=== PATIENT | female | born 1960 | race African-American/Black ===

== ENCOUNTER 2019-12-12 06:20 | Observation (INO) | payer OTHER ==
[2019-12-08 13:05] LABS: BASOPHILS % 0.2 % (0.0-1.0); EOSINOPHILS % 0.2 % (0.0-6.0); HEMATOCRIT 31.6 % (34.2-44.1); HEMOGLOBIN 10.6 g/dL (12.0-16.0); LYMPHOCYTES # (AUTO) 1.6 (1.0-3.2); LYMPHOCYTES % 38.7 % (18.0-39.1); MEAN CORPUSCULAR HEMOGLOBIN 30.4 pg (28-32); MEAN CORPUSCULAR HGB CONC 33.5 g/dL (31-35); MEAN CORPUSCULAR VOLUME 90.5 fL (81-99); MONOCYTES # (AUTO) 0.2 (0.2-0.8); MONOCYTES % 5.4 % (4.4-11.3); NEUTROPHILS # (AUTO) 2.3 (2.1-6.9); NEUTROPHILS % 55.3 % (38.7-80.0); PLATELET COUNT 64 x10e3/uL (140-360); RED BLOOD COUNT 3.49 x10e6/uL (3.6-5.1); RED CELL DISTRIBUTION WIDTH 14.1 % (11.7-14.4)
[~2019-12-12] VITALS: Ht 165.1 cm; Wt 49.0 kg
[~2019-12-12 06:20] MED LIST: LOSARTAN POTASS25 MG PO; ULTRAM50 MG PO
[2019-12-12] MEDS ORDERED: VANCOMYCIN HCL 1,000 MG ONE (06:42)
[2019-12-12] MEDS ORDERED: SODIUM CHLORIDE 0.9% 500ML 500 ML ONE (06:42)
[2019-12-12] MEDS ORDERED: TRANEXAMIC ACID 1,000 MG/10 ML ML ONE (06:43)
[2019-12-12] MEDS ORDERED: BUPIVACAINE 7.5MG/ML /DEXTROSE 82.5MG/ML 2 ML AMP INJ ONE (07:11)
[2019-12-12 07:22] LABS: BASOPHILS % 0.4 % (0.0-1.0); EOSINOPHILS # (AUTO) 0.1 (0.0-0.4); EOSINOPHILS % 1.8 % (0.0-6.0); HEMATOCRIT 26.8 % (34.2-44.1); HEMOGLOBIN 8.6 g/dL (12.0-16.0); LYMPHOCYTES # (AUTO) 1.6 (1.0-3.2); LYMPHOCYTES % 36.3 % (18.0-39.1); MEAN CORPUSCULAR HEMOGLOBIN 30.3 pg (28-32); MEAN CORPUSCULAR HGB CONC 32.1 g/dL (31-35); MEAN CORPUSCULAR VOLUME 94.4 fL (81-99); MONOCYTES # (AUTO) 0.3 (0.2-0.8); MONOCYTES % 7.6 % (4.4-11.3); NEUTROPHILS # (AUTO) 2.4 (2.1-6.9); NEUTROPHILS % 53.7 % (38.7-80.0); PLATELET COUNT 54 x10e3/uL (140-360); RED BLOOD COUNT 2.84 x10e6/uL (3.6-5.1); RED CELL DISTRIBUTION WIDTH 14.1 % (11.7-14.4)
[2019-12-12] MEDS ORDERED: CELECOXIB 200 MG CAP ONE (07:22)
[2019-12-12] MEDS ORDERED: GABAPENTIN 300 MG CAP ONE (07:23)
[2019-12-12] MEDS ORDERED: CEFAZOLIN SOD 1 GM/NS 50ML 100 ML IV ONE (07:23)
[2019-12-12] MEDS ORDERED: DEXAMETHASONE SOD PHOS 10 MG/1 ML VIAL ONE (07:23)
[2019-12-12] MEDS ORDERED: ROPIVACAINE 246.25 MG, EPINEPHRINE HCL 1:1000 1ML 0.5 MG, CLONIDINE HCL 0.08 MG, KETORO... INJ ONE ×5 (08:00)
[2019-12-12] MEDS ORDERED: ACETAMINOPHEN 650 MG SUPP PR PRN (09:15)
[2019-12-12] MEDS ORDERED: HYDROCODONE/APAP 5MG-325MG TAB PO PRN (09:15)
[2019-12-12] MEDS ORDERED: ONDANSETRON HCL INJ 2MG/ML 2ML 2 MG/ML VIAL IV PRN (09:15)
[2019-12-12] MEDS ORDERED: DIPHENHYDRAMINE HCL INJ 50 MG/ML VIAL IV PRN (09:15)
[2019-12-12] MEDS ORDERED: DOCUSATE SODIUM 100 MG CAP PO PRN (09:15)
[2019-12-12] MEDS ORDERED: HYDROMORPHONE 1MG/1ML INJ ONE (09:31)
[2019-12-12 10:37] VITALS: BP 161/91
[2019-12-12 10:47] VITALS: BP 161/91
[2019-12-12] MEDS: SODIUM CHLORIDE 0.9% 1000ML 1,000 ML IV SCH ×2 (11:51→20:26)
[2019-12-12 11:52] VITALS: BP 170/86
[2019-12-12] MEDS: HYDROCODONE/APAP 7.5MG-325MG 1 EA TAB PO PRN ×2 (12:23→20:29)
[2019-12-12] MEDS ORDERED: FENTANYL CITRATE/PF 100MCG/2 ML INJ ONE (12:45)
[2019-12-12] MEDS ORDERED: MIDAZOLAM HCL 2 MG/2 ML VIAL ONE (12:45)
[2019-12-12] MEDS: CEFAZOLIN SOD 1 GM/NS 50ML 50 ML IV SCH ×2 (14:06→22:36)
[2019-12-12] MEDS ORDERED: TRAMADOL HCL 50 MG TAB PO PRN (14:15)
[2019-12-12 15:22] VITALS: BP 148/74
[2019-12-12] MEDS: CELECOXIB 200 MG CAP PO SCH (17:11)
[2019-12-12] MEDS: KETOROLAC TROMETHAMINE 30 MG/ML VIAL IV PRN (17:25)
[2019-12-12] MEDS ORDERED: SEVOFLURANE INHAL SOLN 250 ML PEN BTL ONE (19:27)
[2019-12-12] MEDS ORDERED: PROPOFOL IV EMULSION 10 MG/ML 20 ML VIAL ONE (19:27)
[2019-12-12] MEDS ORDERED: LIDOCAINE HCL 2% LOCAL INJ 5 ML SDV VIAL INJ ONE (19:27)
[2019-12-12] MEDS ORDERED: ONDANSETRON HCL INJ 2MG/ML 2ML 2 MG/ML VIAL ONE (19:27)
[2019-12-12] MEDS ORDERED: LIDOCAINE HCL 2% JELLY 5 ML TUBE ONE (19:27)
[2019-12-12 20:00] VITALS: BP 130/87
[2019-12-12] MEDS: NICOTINE 21 MG/EA PATCH TOP SCH (20:31)
[2019-12-12] MEDS: ASPIRIN 325 MG TAB PO SCH (21:00)
[2019-12-12] MEDS ORDERED: ZOLPIDEM TARTRATE 5 MG TAB PO PRN (21:00)
[2019-12-13] VITALS: BP 139/77
[2019-12-13] MEDS: KETOROLAC TROMETHAMINE 30 MG/ML VIAL IV PRN ×4 (00:26→21:59)
[2019-12-13] MEDS: SODIUM CHLORIDE 0.9% 1000ML 1,000 ML IV SCH (05:26)
[2019-12-13] MEDS: CEFAZOLIN SOD 1 GM/NS 50ML 50 ML IV SCH (05:26)
[2019-12-13 05:53] LABS: BASOPHILS % 0.2 % (0.0-1.0); EOSINOPHILS % 0.2 % (0.0-6.0); HEMOGLOBIN 7.2 g/dL (12.0-16.0); LYMPHOCYTES # (AUTO) 1.6 (1.0-3.2); LYMPHOCYTES % 27.8 % (18.0-39.1); MEAN CORPUSCULAR HEMOGLOBIN 30.8 pg (28-32); MEAN CORPUSCULAR HGB CONC 32.9 g/dL (31-35); MEAN CORPUSCULAR VOLUME 93.6 fL (81-99); MONOCYTES # (AUTO) 0.5 (0.2-0.8); MONOCYTES % 7.8 % (4.4-11.3); NEUTROPHILS # (AUTO) 3.7 (2.1-6.9); NEUTROPHILS % 63.5 % (38.7-80.0); PLATELET COUNT 56 x10e3/uL (140-360); RED BLOOD COUNT 2.34 x10e6/uL (3.6-5.1); RED CELL DISTRIBUTION WIDTH 14.3 % (11.7-14.4)
[2019-12-13] MEDS: HYDROCODONE/APAP 7.5MG-325MG 1 EA TAB PO PRN ×5 (05:57→23:33)
[2019-12-13 06:09] LABS: INR 1.14; PROTHROMBIN TIME 15.2 seconds (11.9-14.5)
[2019-12-13 06:14] LABS: HEMATOCRIT 21.9 % (34.2-44.1)
[2019-12-13 06:19] LABS: ALANINE AMINOTRANSFERASE 56 IU/L (0-55); ALBUMIN/GLOBULIN RATIO 0.8 (0.8-2.0); ALKALINE PHOSPHATASE 111 IU/L (40-150); ANION GAP 12.1 mmol/L (8-16); BLOOD UREA NITROGEN 13 mg/dL (7-26); BUN/CREATININE RATIO 17 (6-25); CALCIUM 7.9 mg/dL (8.4-10.2); CARBON DIOXIDE 23 mmol/L (22-29); CHLORIDE 106 mmol/L (98-107); CREATININE, SERUM 0.75 mg/dL (0.57-1.11); EST GLOMERULAR FILTRATION RATE > 60 ML/MIN (60-); GLUCOSE 164 mg/dL (74-118); POTASSIUM 4.1 mmol/L (3.5-5.1); SODIUM 137 mmol/L (136-145)
[2019-12-13 07:55] VITALS: BP 173/80
[2019-12-13] MEDS: CELECOXIB 200 MG CAP PO SCH ×2 (07:56→16:34)
[2019-12-13] MEDS: LOSARTAN POTASSIUM 25 MG TAB PO SCH (07:56)
[2019-12-13] MEDS: ASPIRIN 325 MG TAB PO SCH ×2 (07:56→16:34)
[2019-12-13 08:05] VITALS: BP 173/80
[2019-12-13] MEDS ORDERED: NICOTINE 21 MG/EA PATCH TOP SCH (09:00)
[2019-12-13] MEDS ORDERED: ACETAMINOPHEN 1000 MG/100 ML IV PRN (09:15)
[2019-12-13] MEDS ORDERED: SODIUM CHLORIDE 0.9% 250ML 250 ML IV ONE (10:00)
[2019-12-13 11:12] LABS: FERRITIN 418.5 ng/mL (4.63-204.00)
[2019-12-13 12:20] VITALS: BP 137/76
[2019-12-13 15:07] VITALS: BP 133/71
[2019-12-13 20:00] VITALS: BP 133/71
[2019-12-13] MEDS: NICOTINE 21 MG/EA PATCH TOP SCH (20:58)
[2019-12-14] VITALS: BP 175/93
[2019-12-14 04:00] VITALS: BP 155/88
[2019-12-14] MEDS: KETOROLAC TROMETHAMINE 30 MG/ML VIAL IV PRN (04:17)
[2019-12-14 05:38] LABS: BASOPHILS % 0.3 % (0.0-1.0); EOSINOPHILS # (AUTO) 0.1 (0.0-0.4); EOSINOPHILS % 1.3 % (0.0-6.0); HEMATOCRIT 26.5 % (34.2-44.1); HEMOGLOBIN 8.8 g/dL (12.0-16.0); LYMPHOCYTES # (AUTO) 2.2 (1.0-3.2); LYMPHOCYTES % 36.9 % (18.0-39.1); MEAN CORPUSCULAR HEMOGLOBIN 30.6 pg (28-32); MEAN CORPUSCULAR HGB CONC 33.2 g/dL (31-35); MONOCYTES # (AUTO) 0.6 (0.2-0.8); MONOCYTES % 9.6 % (4.4-11.3); NEUTROPHILS % 51.4 % (38.7-80.0); PLATELET COUNT 66 x10e3/uL (140-360); RED BLOOD COUNT 2.88 x10e6/uL (3.6-5.1); RED CELL DISTRIBUTION WIDTH 15.5 % (11.7-14.4)
[2019-12-14 06:07] LABS: ALANINE AMINOTRANSFERASE 43 IU/L (0-55); ALBUMIN 2.9 g/dL (3.5-5.0); ALBUMIN/GLOBULIN RATIO 0.7 (0.8-2.0); ALKALINE PHOSPHATASE 88 IU/L (40-150); ANION GAP 11.7 mmol/L (8-16); BLOOD UREA NITROGEN 15 mg/dL (7-26); BUN/CREATININE RATIO 22 (6-25); CARBON DIOXIDE 23 mmol/L (22-29); CHLORIDE 106 mmol/L (98-107); CREATININE, SERUM 0.68 mg/dL (0.57-1.11); EST GLOMERULAR FILTRATION RATE > 60 ML/MIN (60-); GLUCOSE 136 mg/dL (74-118); POTASSIUM 3.7 mmol/L (3.5-5.1); SODIUM 137 mmol/L (136-145)
[2019-12-14 08:06] VITALS: BP 151/86
[2019-12-14 08:15] VITALS: BP 151/86
[2019-12-14] MEDS: LOSARTAN POTASSIUM 25 MG TAB PO SCH (09:33)
[2019-12-14] MEDS: ASPIRIN 325 MG TAB PO SCH (09:33)
[2019-12-14] MEDS: CELECOXIB 200 MG CAP PO SCH (09:33)
[2019-12-14] MEDS: HYDROCODONE/APAP 7.5MG-325MG 1 EA TAB PO PRN (09:34)
[2019-12-14] MEDS ORDERED: XARELTO10 MG PO (10:36)
[2019-12-14] MEDS ORDERED: RIVAROXABAN 10 MG TABLET PO SCH (11:00)
[2019-12-14] MEDS ORDERED: ONDANSETRON HCL 4 MG ORAL DISINTEGRATING TAB PO PRN (11:30)
== END 2019-12-14 11:47 | disposition home or self-care (01) ==
LOC: OR 06:20 → PACU V 09:03 → MED/SURG 10:19 → INTOOBSV 12-13 09:04 → OBSVTOIN 12-13 09:04
PROVIDERS: ADMIT Specialist; ATTEND Specialist
DX: M87.052 Idiopathic aseptic necrosis of left femur (principal); Z11.59 Encounter for screening for other viral diseases; D61.818 Other pancytopenia; F17.210 Nicotine dependence, cigarettes, uncomplicated; I11.9 Hypertensive heart disease without heart failure; F10.20 Alcohol dependence, uncomplicated; M81.8 Other osteoporosis without current pathological fracture
CPT/HCPCS: 36415; 71046; 72170; 80053; 82607; 82728; 82746; 83540; 84466; 85025; 85610; 86850; 86870; 86880; 86900; 86905; 86920; 86922; 93005; 97139; 99001; C1713; C1776; G0378; J0171; J0690; J1100; J1170; J1885; J2001; J2250; J2405; J2795; J3010; J3370; J7030; J7040; J7050; P9016; U0002

== ENCOUNTER 2020-04-23 12:51 | Inpatient (IN) | payer OTHER ==
[~2020-04-23] VITALS: Ht 165.1 cm; Wt 49.0 kg
[~2020-04-23 12:51] MED LIST changes: +XARELTO10 MG PO
[2020-04-23 13:43] LABS: BASOPHILS % 0.5 % (0.0-1.0); EOSINOPHILS # (AUTO) 0.1 (0.0-0.4); EOSINOPHILS % 2.3 % (0.0-6.0); HEMOGLOBIN 9.4 g/dL (12.0-16.0); LYMPHOCYTES # (AUTO) 1.5 (1.0-3.2); MEAN CORPUSCULAR HEMOGLOBIN 33.2 pg (28-32); MEAN CORPUSCULAR HGB CONC 33.6 g/dL (31-35); MEAN CORPUSCULAR VOLUME 98.9 fL (81-99); MONOCYTES # (AUTO) 0.4 (0.2-0.8); MONOCYTES % 9.3 % (4.4-11.3); NEUTROPHILS # (AUTO) 2.4 (2.1-6.9); NEUTROPHILS % 54.4 % (38.7-80.0); PLATELET COUNT 74 x10e3/uL (140-360); RED BLOOD COUNT 2.83 x10e6/uL (3.6-5.1); RED CELL DISTRIBUTION WIDTH 14.4 % (11.7-14.4)
[2020-04-23 14:05] LABS: ALANINE AMINOTRANSFERASE 38 IU/L (0-55); ALBUMIN 3.5 g/dL (3.5-5.0); ALBUMIN/GLOBULIN RATIO 0.6 (0.8-2.0); ALKALINE PHOSPHATASE 86 IU/L (40-150); ANION GAP 14.1 mmol/L (8-16); BLOOD UREA NITROGEN 16 mg/dL (7-26); BUN/CREATININE RATIO 19 (6-25); CARBON DIOXIDE 24 mmol/L (22-29); CHLORIDE 95 mmol/L (98-107); CREATINE KINASE 27 IU/L (29-168); CREATININE, SERUM 0.83 mg/dL (0.57-1.11); EST GLOMERULAR FILTRATION RATE > 60 ML/MIN (60-); GLUCOSE 153 mg/dL (74-118); POTASSIUM 3.1 mmol/L (3.5-5.1); SODIUM 130 mmol/L (136-145)
[2020-04-23] MEDS ORDERED: SODIUM CHLORIDE 0.9% 50ML 50 ML ONE (14:25)
[2020-04-23] MEDS ORDERED: IOPAMIDOL 370 MG/ML 200 ML INFUS..BTL INJ ONE (14:26)
[2020-04-23 14:31] LABS: CLARITY,URINE CLEAR (CLEAR); COLOR,URINE YELLOW (YELLOW); KETONES,URINE TRACE (NEGATIVE); LEUKOCYTE ESTERASE ,URINE NEGATIVE (NEGATIVE); NITRITE,URINE NEGATIVE (NEGATIVE); PROTEIN,URINE DIPSTICK 2+ (NEGATIVE); URINE UROBILINOGEN 1 mg/dL (0.2 - 1)
[2020-04-23 14:52] LABS: BACTERIA,URINE MANY /HPF; EPITHELIAL CELLS,URINE MANY /LPF; TRANSITIONAL EPI CELLS,URINE MODERATE; WBC,URINE (MAN) 0-5 /HPF (0-5)
[2020-04-23 14:53] LABS: AMORPHOUS SEDIMENT,URINE MODERATE (FEW)
[2020-04-23] MEDS: D5.45%NS/KCL 20MEQ 1,000 ML IV SCH (15:49)
[2020-04-23] MEDS: ONDANSETRON HCL INJ 2MG/ML 2ML 2 MG/ML VIAL IV PRN (15:49)
[2020-04-23 23:35] VITALS: BP 121/81
[2020-04-24] VITALS (10 sets, daily range): BP systolic 121–188; BP diastolic 80–110
[2020-04-24] MEDS: D5.45%NS/KCL 20MEQ 1,000 ML IV SCH ×4 (00:01→23:30)
[2020-04-24] MEDS ORDERED: PNEUMOCOCCAL VACCINE POLYVALENT 23 MCG/0.5 ML VIAL IM SCH (00:02)
[2020-04-24 05:47] LABS: BASOPHILS % 0.6 % (0.0-1.0); EOSINOPHILS # (AUTO) 0.1 (0.0-0.4); EOSINOPHILS % 2.9 % (0.0-6.0); HEMOGLOBIN 8.1 g/dL (12.0-16.0); LYMPHOCYTES # (AUTO) 1.4 (1.0-3.2); LYMPHOCYTES % 39.9 % (18.0-39.1); MEAN CORPUSCULAR HEMOGLOBIN 35.8 pg (28-32); MEAN CORPUSCULAR HGB CONC 35.2 g/dL (31-35); MEAN CORPUSCULAR VOLUME 101.8 fL (81-99); MONOCYTES # (AUTO) 0.5 (0.2-0.8); MONOCYTES % 14.7 % (4.4-11.3); NEUTROPHILS # (AUTO) 1.4 (2.1-6.9); NEUTROPHILS % 41.6 % (38.7-80.0); PLATELET COUNT 62 x10e3/uL (140-360); RED BLOOD COUNT 2.26 x10e6/uL (3.6-5.1); RED CELL DISTRIBUTION WIDTH 14.6 % (11.7-14.4)
[2020-04-24] MEDS ORDERED: NEURONTIN100 MG PO (06:20)
[2020-04-24 06:31] LABS: ALANINE AMINOTRANSFERASE 29 IU/L (0-55); ALBUMIN 2.7 g/dL (3.5-5.0); ALBUMIN/GLOBULIN RATIO 0.6 (0.8-2.0); ALKALINE PHOSPHATASE 85 IU/L (40-150); ANION GAP 12.8 mmol/L (8-16); BLOOD UREA NITROGEN 13 mg/dL (7-26); BUN/CREATININE RATIO 19 (6-25); CALCIUM 7.9 mg/dL (8.4-10.2); CARBON DIOXIDE 19 mmol/L (22-29); CHLORIDE 102 mmol/L (98-107); CREATININE, SERUM 0.67 mg/dL (0.57-1.11); EST GLOMERULAR FILTRATION RATE > 60 ML/MIN (60-); GLUCOSE 176 mg/dL (74-118); LIPASE 192 U/L (8-78); POTASSIUM 3.8 mmol/L (3.5-5.1); SODIUM 130 mmol/L (136-145)
[2020-04-24] MEDS ORDERED: PNEUMOCOCCAL VACCINE POLYVALENT 23 MCG/0.5 ML VIAL IM ONE (10:30)
[2020-04-24] MEDS: ONDANSETRON HCL INJ 2MG/ML 2ML 2 MG/ML VIAL IV PRN (14:45)
[2020-04-24] MEDS ORDERED: LORAZEPAM 0.5 MG TAB PO ONE (20:15)
[2020-04-24] MEDS: HYDRALAZINE HCL 20 MG/ML VIAL IV PRN (21:20)
[2020-04-25] VITALS (7 sets, daily range): BP systolic 127–158; BP diastolic 70–91
[2020-04-25 06:13] LABS: BASOPHILS % 0.2 % (0.0-1.0); EOSINOPHILS # (AUTO) 0.1 (0.0-0.4); EOSINOPHILS % 1.9 % (0.0-6.0); HEMATOCRIT 23.8 % (34.2-44.1); HEMOGLOBIN 8.2 g/dL (12.0-16.0); LYMPHOCYTES # (AUTO) 1.6 (1.0-3.2); LYMPHOCYTES % 37.1 % (18.0-39.1); MEAN CORPUSCULAR HEMOGLOBIN 33.7 pg (28-32); MEAN CORPUSCULAR HGB CONC 34.5 g/dL (31-35); MEAN CORPUSCULAR VOLUME 97.9 fL (81-99); MONOCYTES # (AUTO) 0.6 (0.2-0.8); MONOCYTES % 14.9 % (4.4-11.3); NEUTROPHILS # (AUTO) 1.9 (2.1-6.9); NEUTROPHILS % 45.4 % (38.7-80.0); PLATELET COUNT 82 x10e3/uL (140-360); RED BLOOD COUNT 2.43 x10e6/uL (3.6-5.1); RED CELL DISTRIBUTION WIDTH 14.2 % (11.7-14.4)
[2020-04-25 06:45] LABS: ANION GAP 13.7 mmol/L (8-16); BLOOD UREA NITROGEN 5 mg/dL (7-26); BUN/CREATININE RATIO 8 (6-25); CALCIUM 8.1 mg/dL (8.4-10.2); CARBON DIOXIDE 20 mmol/L (22-29); CHLORIDE 101 mmol/L (98-107); CREATININE, SERUM 0.59 mg/dL (0.57-1.11); EST GLOMERULAR FILTRATION RATE > 60 ML/MIN (60-); GLUCOSE 114 mg/dL (74-118); POTASSIUM 3.7 mmol/L (3.5-5.1); SODIUM 131 mmol/L (136-145)
[2020-04-25 07:01] LABS: % IRON SATURATION 13 % (15-50); AMYLASE 160 U/L (25-125); IRON 28 ug/dL (50-170); LIPASE 188 U/L (8-78); TOTAL IRON BINDING CAPACITY 221 ug/dL (261-478); TRANSFERRIN 158 mg/dL (180-382)
[2020-04-25] MEDS: D5.45%NS/KCL 20MEQ 1,000 ML IV SCH ×3 (09:33→23:30)
[2020-04-25] MEDS: GABAPENTIN 100 MG CAP PO SCH (21:30)
[2020-04-25] MEDS ORDERED: TRAMADOL HCL 50 MG TAB PO PRN (21:30)
[2020-04-26] VITALS: BP 164/100
[2020-04-26 04:00] VITALS: BP 141/75
[2020-04-26 06:45] LABS: BASOPHILS % 0.6 % (0.0-1.0); EOSINOPHILS # (AUTO) 0.1 (0.0-0.4); EOSINOPHILS % 2.3 % (0.0-6.0); HEMATOCRIT 23.3 % (34.2-44.1); LYMPHOCYTES # (AUTO) 1.5 (1.0-3.2); LYMPHOCYTES % 43.4 % (18.0-39.1); MEAN CORPUSCULAR HEMOGLOBIN 34.2 pg (28-32); MEAN CORPUSCULAR HGB CONC 34.3 g/dL (31-35); MEAN CORPUSCULAR VOLUME 99.6 fL (81-99); MONOCYTES # (AUTO) 0.6 (0.2-0.8); MONOCYTES % 16.9 % (4.4-11.3); NEUTROPHILS # (AUTO) 1.3 (2.1-6.9); NEUTROPHILS % 36.2 % (38.7-80.0); PLATELET COUNT 97 x10e3/uL (140-360); RED BLOOD COUNT 2.34 x10e6/uL (3.6-5.1); RED CELL DISTRIBUTION WIDTH 14.3 % (11.7-14.4)
[2020-04-26 07:14] LABS: ANION GAP 11.2 mmol/L (8-16); BLOOD UREA NITROGEN < 5 mg/dL (7-26); BUN/CREATININE RATIO 7 (6-25); CALCIUM 7.8 mg/dL (8.4-10.2); CARBON DIOXIDE 22 mmol/L (22-29); CHLORIDE 102 mmol/L (98-107); CREATININE, SERUM 0.69 mg/dL (0.57-1.11); EST GLOMERULAR FILTRATION RATE > 60 ML/MIN (60-); GLUCOSE 267 mg/dL (74-118); LIPASE 270 U/L (8-78); POTASSIUM 4.2 mmol/L (3.5-5.1); SODIUM 131 mmol/L (136-145)
[2020-04-26] MEDS: D5.45%NS/KCL 20MEQ 1,000 ML IV SCH (07:30)
[2020-04-26 07:43] VITALS: BP 152/78
[2020-04-26] MEDS: GABAPENTIN 100 MG CAP PO SCH ×2 (08:18→14:29)
[2020-04-26 08:38] VITALS: BP 152/78
[2020-04-26] MEDS ORDERED: IRON SUCROSE 100 MG in SODIUM CHLORIDE 0.9% 100 ML 100 ML IV SCH (09:00)
[2020-04-26] MEDS ORDERED: RIVAROXABAN 10 MG TABLET PO SCH (09:00)
[2020-04-26] MEDS ORDERED: LOSARTAN POTASSIUM 25 MG TAB PO SCH (09:00)
[2020-04-26 10:55] LABS: HYPOCHROMASIA MODE; LYMPHOCYTES % (MANUAL) 44 % (19-48); MONOCYTES % (MANUAL) 16 % (3.4-9.0); NEUTROPHILS % (MANUAL) 39 % (40-74); PLATELET ESTIMATE SLIGHTLY DECREASED; POLYCHROMASIA FEW; RBC MORPHOLOGY COMMENT ABNORMAL
[2020-04-26 11:08] VITALS: BP 149/90
[2020-04-26] MEDS: HYDRALAZINE HCL 20 MG/ML VIAL IV PRN (15:13)
[2020-04-26 15:17] VITALS: BP 168/96
[2020-04-26] MEDS ORDERED: ONDANSETRON HCL 4 MG ORAL DISINTEGRATING TAB PO PRN (18:30)
== END 2020-04-26 18:35 | disposition home or self-care (01) | DRG 439 ==
LOC: ER 13:30 → ERHOLD 15:34 → MED/SURG3 23:43 → OBSVTOIN 04-25 08:54
PROVIDERS: ADMIT Internal Medicine; ATTEND Internal Medicine
DX: K85.20 Alcohol induced acute pancreatitis without necrosis or infection (principal); E44.1 Mild protein-calorie malnutrition; Z68.1 Body mass index [BMI] 19.9 or less, adult; F10.20 Alcohol dependence, uncomplicated; D64.9 Anemia, unspecified; J44.9 Chronic obstructive pulmonary disease, unspecified; F17.210 Nicotine dependence, cigarettes, uncomplicated; I10 Essential (primary) hypertension; D50.9 Iron deficiency anemia, unspecified; Z20.822 Contact with and (suspected) exposure to COVID-19
CPT/HCPCS: 36415; 71045; 74177; 80048; 80053; 81001; 82150; 82550; 82553; 82607; 82746; 83540; 83690; 84466; 84484; 85025; 85045; 90732; 99284; G0378; J0360; J1756; J2405; Q9967; U0002

== ENCOUNTER 2020-10-03 02:54 | Inpatient (IN) | payer OTHER ==
[~2020-10-03] VITALS: Ht 165.1 cm; Wt 42.2 kg
[~2020-10-03 02:54] MED LIST changes: +NEURONTIN100 MG PO
[2020-10-03] MEDS ORDERED: ONDANSETRON HCL INJ 2MG/ML 2ML 2 MG/ML VIAL IV STA (03:25)
[2020-10-03] MEDS ORDERED: MORPHINE SULFATE INJ 4 MG/ML INJ 1ML IV STA (03:25)
[2020-10-03] MEDS ORDERED: SODIUM CHLORIDE 0.9% 1000ML 1,000 ML IV SCH ×2 (03:30→05:00)
[2020-10-03] MEDS ORDERED: ONDANSETRON HCL INJ 2MG/ML 2ML 2 MG/ML VIAL ONE (03:58)
[2020-10-03] MEDS ORDERED: MORPHINE SULFATE INJ 4 MG/ML INJ 1ML ONE (03:59)
[2020-10-03] MEDS ORDERED: SODIUM CHLORIDE 0.9% 1000ML 1,000 ML ONE (03:59)
[2020-10-03] MEDS ORDERED: SODIUM CHLORIDE 0.9% 50ML 50 ML ONE (04:24)
[2020-10-03] MEDS ORDERED: IOPAMIDOL 370 MG/ML 200 ML INFUS..BTL INJ ONE (04:25)
[2020-10-03 07:53] VITALS: BP 154/86
[2020-10-03] MEDS: MORPHINE SULFATE INJ 4 MG/ML INJ 1ML IV PRN ×4 (07:55→23:41)
[2020-10-03 11:12] VITALS: BP 154/86
[2020-10-03 11:54] VITALS: BP 132/76
[2020-10-03] MEDS ORDERED: METFORMIN HCL500 M1 PO (14:18)
[2020-10-03] MEDS ORDERED: METOPROLOL SUCC50 MG PO (14:18)
[2020-10-03] MEDS: LACTATED RINGER'S 1,000 ML INJ SCH ×2 (15:00→23:41)
[2020-10-03] MEDS: ONDANSETRON HCL INJ 2MG/ML 2ML 2 MG/ML VIAL IV PRN ×3 (15:01→23:41)
[2020-10-03 16:05] VITALS: BP 141/86
[2020-10-03 20:00] VITALS: BP 172/87
[2020-10-03 20:04] VITALS: BP 172/87
[2020-10-03] MEDS ORDERED: CHLORDIAZEPOXIDE HCL 25 MG CAP PO PRN (23:00)
[2020-10-03] MEDS ORDERED: ONDANSETRON HCL INJ 2MG/ML 2ML 2 MG/ML VIAL IV PRN (23:00)
[2020-10-03] MEDS ORDERED: ACETAMINOPHEN 325 MG TAB PO PRN (23:00)
[2020-10-03] MEDS: FAMOTIDINE 20 MG/2 ML VIAL IV SCH (23:41)
[2020-10-04] VITALS (7 sets, daily range): BP systolic 124–149; BP diastolic 74–90
[2020-10-04] MEDS ORDERED: THIAMINE HCL INJ 100 MG/ML 2ML VIAL IV ONE ×2 (01:15→02:00)
[2020-10-04] MEDS ORDERED: BISACODYL 10 MG SUPP PR ONE (01:30)
[2020-10-04] MEDS ORDERED: MULTIVITAMINS- 12 INJECTION 10 ML in SODIUM CHLORIDE 0.9% 1000ML 1,000 ML IV SCH (02:00)
[2020-10-04] MEDS ORDERED: FOLIC ACID 5 MG/ML VIAL IV ONE (02:00)
[2020-10-04 04:50] LABS: BASOPHILS % 0.7 % (0.0-1.0); EOSINOPHILS # (AUTO) 0.1 (0.0-0.4); EOSINOPHILS % 0.9 % (0.0-6.0); HEMATOCRIT 30.2 % (34.2-44.1); LYMPHOCYTES # (AUTO) 1.3 (1.0-3.2); MEAN CORPUSCULAR HEMOGLOBIN 31.8 pg (28-32); MEAN CORPUSCULAR HGB CONC 33.1 g/dL (31-35); MEAN CORPUSCULAR VOLUME 96.2 fL (81-99); MONOCYTES # (AUTO) 0.4 (0.2-0.8); MONOCYTES % 6.3 % (4.4-11.3); NEUTROPHILS # (AUTO) 3.9 (2.1-6.9); NEUTROPHILS % 68.7 % (38.7-80.0); PLATELET COUNT 50 x10e3/uL (140-360); RED BLOOD COUNT 3.14 x10e6/uL (3.6-5.1)
[2020-10-04 05:13] LABS: ALBUMIN 3.3 g/dL (3.5-5.0); ALBUMIN/GLOBULIN RATIO 0.7 (0.8-2.0); ANION GAP 15.5 mmol/L (8-16); CHOL/HDL RATIO 2.8 (3.0-3.6); CREATININE, SERUM 0.86 mg/dL (0.57-1.11); MAGNESIUM 1.2 MG/DL (1.3-2.1); PHOSPHORUS 1.6 MG/DL (2.3-4.7); POTASSIUM 3.5 mmol/L (3.5-5.1)
[2020-10-04 05:37] LABS: THYROID STIMULATING HORMONE 1.704 uIU/mL (0.350-4.940)
[2020-10-04] MEDS: FAMOTIDINE 20 MG/2 ML VIAL IV SCH ×2 (08:28→17:30)
[2020-10-04] MEDS: AMYLAS/CELLU/LIPAS/PROTEA/BILE 12,000 UNIT CAP PO SCH ×3 (08:28→17:30)
[2020-10-04] MEDS ORDERED: SODIUM CHLORIDE 0.9% 50ML 50 ML ONE (08:44)
[2020-10-04] MEDS ORDERED: GADOBENATE DIMEGLUMINE 1 ML IV ONE (08:44)
[2020-10-04] MEDS ORDERED: MULTIVITAMINS- 12 INJECTION 10 ML, FOLIC ACID MDV 5 MG, THIAMINE HCL INJ 100 MG in SODI... IV SCH (09:00)
[2020-10-04] MEDS: MORPHINE SULFATE INJ 4 MG/ML INJ 1ML IV PRN ×2 (10:05→21:00)
[2020-10-04] MEDS ORDERED: SODIUM CHLORIDE 0.9% 1000ML 0 ML ONE (23:51)
[2020-10-04] MEDS ORDERED: THIAMINE HCL INJ 100 MG/ML 2ML VIAL ONE (23:51)
[2020-10-04] MEDS: MULTIVITAMINS- 12 INJECTION 10 ML, FOLIC ACID MDV 1 MG, THIAMINE HCL INJ 100 MG in SODI... IV SCH (23:55)
[2020-10-05] VITALS (8 sets, daily range): BP systolic 130–145; BP diastolic 75–91
[2020-10-05] MEDS: MORPHINE SULFATE INJ 4 MG/ML INJ 1ML IV PRN ×4 (04:10→23:35)
[2020-10-05 05:33] LABS: AMYLASE 145 U/L (25-125); LIPASE 86 U/L (8-78)
[2020-10-05 05:42] LABS: % IRON SATURATION 13 % (15-50); IRON 25 ug/dL (50-170); TOTAL IRON BINDING CAPACITY 188 ug/dL (261-478); TRANSFERRIN 134 mg/dL (180-382)
[2020-10-05] MEDS: AMYLAS/CELLU/LIPAS/PROTEA/BILE 12,000 UNIT CAP PO SCH ×3 (08:38→16:29)
[2020-10-05] MEDS: FAMOTIDINE 20 MG/2 ML VIAL IV SCH ×2 (09:12→16:29)
[2020-10-05] MEDS: CEFTRIAXONE 1 GM in SODIUM CHLORIDE 0.9% 50ML 50 ML IV SCH (11:48)
[2020-10-05] MEDS ORDERED: MAGNESIUM SULFATE 2GM/50ML 50 ML IV ONE (12:00)
[2020-10-05] MEDS ORDERED: POTASSIUM PHOSPHATE 15 MM in SODIUM CHLORIDE 0.9% 250ML 250 ML IV ONE (14:00)
[2020-10-05] MEDS: MULTIVITAMINS- 12 INJECTION 10 ML, FOLIC ACID MDV 1 MG, THIAMINE HCL INJ 100 MG in SODI... IV SCH (16:29)
[2020-10-06] VITALS: BP 149/85
[2020-10-06 04:00] VITALS: BP 129/62
[2020-10-06] MEDS: MORPHINE SULFATE INJ 4 MG/ML INJ 1ML IV PRN (04:15)
[2020-10-06 05:29] LABS: ALBUMIN/GLOBULIN RATIO 0.7 (0.8-2.0); ANION GAP 12.8 mmol/L (8-16); CALCIUM 8.5 mg/dL (8.4-10.2); CREATININE, SERUM 0.71 mg/dL (0.57-1.11); MAGNESIUM 1.4 MG/DL (1.3-2.1); PHOSPHORUS 3.1 MG/DL (2.3-4.7); POTASSIUM 3.8 mmol/L (3.5-5.1)
[2020-10-06] MEDS: MULTIVITAMINS- 12 INJECTION 10 ML, FOLIC ACID MDV 1 MG, THIAMINE HCL INJ 100 MG in SODI... IV SCH (05:32)
[2020-10-06 07:45] VITALS: BP 153/73
[2020-10-06 08:53] VITALS: BP 153/73
[2020-10-06] MEDS: AMYLAS/CELLU/LIPAS/PROTEA/BILE 12,000 UNIT CAP PO SCH (08:56)
[2020-10-06] MEDS: FAMOTIDINE 20 MG/2 ML VIAL IV SCH (08:57)
[2020-10-06] MEDS: CEFTRIAXONE 1 GM in SODIUM CHLORIDE 0.9% 50ML 50 ML IV SCH (08:57)
[2020-10-06 09:00] VITALS: BP 153/73
[2020-10-06] MEDS ORDERED: IRON SUCROSE 100 MG in SODIUM CHLORIDE 0.9% 100 ML 100 ML IV SCH (09:00)
[2020-10-06] MEDS ORDERED: MAGNESIUM OXID400 MG PO (11:50)
[2020-10-06] MEDS ORDERED: B12 ACTIVE1000 MCG PO (11:51)
[2020-10-06] MEDS ORDERED: FOLIC ACID0.8 MG PO (11:52)
[2020-10-06] MEDS ORDERED: ZENPEP DR 40,01 EACH PO (11:56)
== END 2020-10-06 12:18 | disposition home or self-care (01) | DRG 440 ==
LOC: FSED 03:25 → ERHOLD 04:54 → MED/SURG2 07:22
PROVIDERS: ADMIT Internal Medicine; ATTEND Internal Medicine
DX: K85.20 Alcohol induced acute pancreatitis without necrosis or infection (principal); F10.20 Alcohol dependence, uncomplicated; Y90.9 Presence of alcohol in blood, level not specified; F17.210 Nicotine dependence, cigarettes, uncomplicated; I10 Essential (primary) hypertension; J44.9 Chronic obstructive pulmonary disease, unspecified; E86.0 Dehydration; M16.10 Unilateral primary osteoarthritis, unspecified hip; M16.12 Unilateral primary osteoarthritis, left hip; Z96.642 Presence of left artificial hip joint; D69.6 Thrombocytopenia, unspecified
CPT/HCPCS: 36415; 74177; 74183; 80048; 80053; 80061; 80076; 81003; 82150; 82607; 82746; 82948; 83540; 83690; 83735; 84100; 84443; 84466; 85025; 85045; 86301; 93005; 96361; 96374; 96376; 99284; J0696; J1756; J2270; J2405; J3411; J3475; J7030; J7050; J7121; Q9967; U0002

== ENCOUNTER 2020-12-20 14:17 | Inpatient (IN) | payer OTHER ==
[~2020-12-20] VITALS: Ht 165.1 cm; Wt 42.2 kg
[~2020-12-20 14:17] MED LIST changes: +B12 ACTIVE1000 MCG PO; +FOLIC ACID0.8 MG PO; +MAGNESIUM OXID400 MG PO; +METFORMIN HCL500 M1 PO; +METOPROLOL SUCC50 MG PO; +ZENPEP DR 40,01 EACH PO
[2020-12-20] MEDS ORDERED: ONDANSETRON HCL INJ 2MG/ML 2ML 2 MG/ML VIAL IV STA (16:23)
[2020-12-20] MEDS ORDERED: SODIUM CHLORIDE 0.9% 1000ML 1,000 ML IV STA (16:33)
[2020-12-20 16:44] LABS: BASOPHILS % 0.4 % (0.0-1.0); EOSINOPHILS % 0.2 % (0.0-6.0); HEMATOCRIT 29.4 % (34.2-44.1); HEMOGLOBIN 9.6 g/dL (12.0-16.0); LYMPHOCYTES # (AUTO) 0.9 (1.0-3.2); LYMPHOCYTES % 19.2 % (18.0-39.1); MEAN CORPUSCULAR HEMOGLOBIN 32.1 pg (28-32); MEAN CORPUSCULAR HGB CONC 32.7 g/dL (31-35); MEAN CORPUSCULAR VOLUME 98.3 fL (81-99); MONOCYTES # (AUTO) 0.3 (0.2-0.8); MONOCYTES % 6.9 % (4.4-11.3); NEUTROPHILS # (AUTO) 3.3 (2.1-6.9); NEUTROPHILS % 72.6 % (38.7-80.0); PLATELET COUNT 50 x10e3/uL (140-360); RED BLOOD COUNT 2.99 x10e6/uL (3.6-5.1); RED CELL DISTRIBUTION WIDTH 15.4 % (11.7-14.4)
[2020-12-20] MEDS ORDERED: Morphine 4mg Syringe 4 MG/ML INJ IV ONE (16:45)
[2020-12-20 16:57] LABS: ALBUMIN 4.3 g/dL (3.5-5.0); ALBUMIN/GLOBULIN RATIO 0.8 (0.8-2.0); ANION GAP 32.2 mmol/L (8-16); CALCIUM 9.5 mg/dL (8.4-10.2); CREATININE, SERUM 1.67 mg/dL (0.57-1.11); POTASSIUM 4.2 mmol/L (3.5-5.1)
[2020-12-20 20:18] LABS: CLARITY,URINE SL CLOUDY (CLEAR); COLOR,URINE YELLOW (YELLOW)
[2020-12-20 20:19] LABS: KETONES,URINE >=160 (NEGATIVE); LEUKOCYTE ESTERASE ,URINE NEGATIVE (NEGATIVE); NITRITE,URINE NEGATIVE (NEGATIVE); PROTEIN,URINE DIPSTICK NEGATIVE (NEGATIVE); URINE UROBILINOGEN 0.2 mg/dL (0.2 - 1)
[2020-12-20 20:25] LABS: BACTERIA,URINE FEW /HPF; EPITHELIAL CELLS,URINE MANY /LPF; WBC,URINE (MAN) 0-5 /HPF (0-5)
[2020-12-20] MEDS: SODIUM CHLORIDE 0.9% 1000ML 1,000 ML IV SCH (20:55)
[2020-12-20] MEDS: Morphine 4mg Syringe 4 MG/ML INJ IV PRN (20:55)
[2020-12-20] MEDS ORDERED: AMLODIPINE BESYLATE 10 MG TAB PO ONE (21:30)
[2020-12-20 21:38] VITALS: BP 196/92
[2020-12-20 22:00] VITALS: BP 196/92
[2020-12-20 22:02] VITALS: BP 196/92
[2020-12-20] MEDS ORDERED: HYDRALAZINE HCL 20 MG/ML VIAL IV PRN (23:30)
[2020-12-20] MEDS ORDERED: DEXTROSE 50% SYRINGE 50 ML IV PRN (23:30)
[2020-12-21] VITALS: BP 180/100
[2020-12-21] MEDS: PIPERACILLIN/TAZOBACTAM 3.375 GM in SODIUM CHLORIDE 0.9% 50ML 50 ML IV SCH ×4 (00:22→21:33)
[2020-12-21] MEDS: METOPROLOL TARTRATE 50 MG TAB PO SCH ×4 (00:23→21:36)
[2020-12-21] MEDS: SODIUM CHLORIDE 0.9% 1000ML 1,000 ML IV SCH ×4 (01:40→21:38)
[2020-12-21] MEDS: Morphine 4mg Syringe 4 MG/ML INJ IV PRN ×4 (02:10→20:07)
[2020-12-21 04:00] VITALS: BP 173/105
[2020-12-21 04:56] LABS: BASOPHILS % 0.2 % (0.0-1.0); EOSINOPHILS % 0.6 % (0.0-6.0); HEMATOCRIT 30.2 % (34.2-44.1); HEMOGLOBIN 9.9 g/dL (12.0-16.0); LYMPHOCYTES # (AUTO) 0.6 (1.0-3.2); LYMPHOCYTES % 10.6 % (18.0-39.1); MEAN CORPUSCULAR HEMOGLOBIN 31.9 pg (28-32); MEAN CORPUSCULAR HGB CONC 32.8 g/dL (31-35); MEAN CORPUSCULAR VOLUME 97.4 fL (81-99); MONOCYTES # (AUTO) 0.4 (0.2-0.8); MONOCYTES % 6.5 % (4.4-11.3); NEUTROPHILS # (AUTO) 4.4 (2.1-6.9); NEUTROPHILS % 81.5 % (38.7-80.0); RED CELL DISTRIBUTION WIDTH 15.5 % (11.7-14.4)
[2020-12-21 05:00] LABS: PLATELET COUNT 28 x10e3/uL (140-360)
[2020-12-21 05:24] LABS: ALBUMIN 3.8 g/dL (3.5-5.0); ALBUMIN/GLOBULIN RATIO 0.7 (0.8-2.0); ANION GAP 24.2 mmol/L (8-16); CALCIUM 8.7 mg/dL (8.4-10.2); CHOL/HDL RATIO 1.7 (3.0-3.6); CREATININE, SERUM 1.39 mg/dL (0.57-1.11); PHOSPHORUS 1.9 MG/DL (2.3-4.7); POTASSIUM 4.2 mmol/L (3.5-5.1)
[2020-12-21 05:26] LABS: MAGNESIUM 1.1 MG/DL (1.3-2.1)
[2020-12-21 05:31] LABS: THYROID STIMULATING HORMONE 0.547 uIU/mL (0.350-4.940)
[2020-12-21] MEDS ORDERED: NIFEDIPINE CR 30 MG TAB PO SCH (06:00)
[2020-12-21] MEDS ORDERED: MAGNESIUM SULFATE 2GM/50ML IV SCH (09:15)
[2020-12-21] MEDS: INSULIN LISPRO 100 UNIT/1 ML 3ML VIAL SQ SCH ×4 (09:19→21:00)
[2020-12-21] MEDS: MAGNESIUM SULFATE 2GM/50ML 50 ML IV SCH ×2 (09:20→10:53)
[2020-12-21 10:10] VITALS: BP 102/58
[2020-12-21 12:00] VITALS: BP 110/56
[2020-12-21 16:00] VITALS: BP 112/61
[2020-12-21 20:00] VITALS: BP 115/66
[2020-12-21] MEDS: TEMAZEPAM 15 MG CAP PO PRN (21:36)
[2020-12-21] MEDS: ONDANSETRON HCL INJ 2MG/ML 2ML 2 MG/ML VIAL IV PRN (21:37)
[2020-12-21] MEDS ORDERED: THIAMINE HCL INJ 100 MG/ML 2ML VIAL IV ONE (23:45)
[2020-12-22] VITALS (7 sets, daily range): BP systolic 94–121; BP diastolic 56–75
[2020-12-22] MEDS: Morphine 4mg Syringe 4 MG/ML INJ IV PRN ×3 (00:45→10:16)
[2020-12-22] MEDS ORDERED: THIAMINE HCL INJ 100 MG/ML 2ML VIAL ONE (00:57)
[2020-12-22] MEDS ORDERED: MULTIVITAMINS INJECTION ONE (00:59)
[2020-12-22] MEDS ORDERED: SODIUM CHLORIDE 0.9% 1000ML 1,000 ML ONE (01:00)
[2020-12-22] MEDS: LACTATED RINGER'S 1,000 ML INJ SCH ×3 (01:06→21:51)
[2020-12-22] MEDS: MULTIVITAMINS- 12 INJECTION 10 ML, FOLIC ACID MDV 1 MG, THIAMINE HCL INJ 100 MG in SODI... IV SCH (01:26)
[2020-12-22 05:06] LABS: BASOPHILS % 0.5 % (0.0-1.0); EOSINOPHILS % 0.7 % (0.0-6.0); HEMATOCRIT 25.7 % (34.2-44.1); HEMOGLOBIN 8.6 g/dL (12.0-16.0); LYMPHOCYTES # (AUTO) 0.7 (1.0-3.2); LYMPHOCYTES % 12.1 % (18.0-39.1); MEAN CORPUSCULAR HEMOGLOBIN 32.3 pg (28-32); MEAN CORPUSCULAR HGB CONC 33.5 g/dL (31-35); MEAN CORPUSCULAR VOLUME 96.6 fL (81-99); MONOCYTES # (AUTO) 0.5 (0.2-0.8); MONOCYTES % 8.9 % (4.4-11.3); NEUTROPHILS # (AUTO) 4.3 (2.1-6.9); NEUTROPHILS % 77.3 % (38.7-80.0); RED BLOOD COUNT 2.66 x10e6/uL (3.6-5.1); RED CELL DISTRIBUTION WIDTH 15.7 % (11.7-14.4)
[2020-12-22 05:11] LABS: PLATELET COUNT 43 x10e3/uL (140-360)
[2020-12-22 05:23] LABS: PHOSPHORUS 1.2 MG/DL (2.3-4.7)
[2020-12-22] MEDS: METOPROLOL TARTRATE 50 MG TAB PO SCH ×3 (05:38→22:36)
[2020-12-22] MEDS: PIPERACILLIN/TAZOBACTAM 3.375 GM in SODIUM CHLORIDE 0.9% 50ML 50 ML IV SCH ×3 (05:38→21:51)
[2020-12-22] MEDS: NIFEDIPINE CR 30 MG TAB PO SCH (05:39)
[2020-12-22 06:34] LABS: ANION GAP 13.9 mmol/L (8-16); CALCIUM 8.2 mg/dL (8.4-10.2); CREATININE, SERUM 1.06 mg/dL (0.57-1.11); POTASSIUM 3.9 mmol/L (3.5-5.1)
[2020-12-22] MEDS: INSULIN LISPRO 100 UNIT/1 ML 3ML VIAL SQ SCH ×4 (07:30→20:47)
[2020-12-22] MEDS ORDERED: THIAMINE HCL INJ 100 MG/ML 2ML VIAL IV SCH (09:00)
[2020-12-22] MEDS: IRON SUCROSE 100 MG in SODIUM CHLORIDE 0.9% 100 ML 100 ML IV SCH (09:00)
[2020-12-23] VITALS (7 sets, daily range): BP systolic 108–135; BP diastolic 45–79
[2020-12-23] MEDS: MULTIVITAMINS- 12 INJECTION 10 ML, FOLIC ACID MDV 1 MG, THIAMINE HCL INJ 100 MG in SODI... IV SCH ×3 (00:01→20:15)
[2020-12-23 06:03] LABS: BASOPHILS % 0.4 % (0.0-1.0); EOSINOPHILS # (AUTO) 0.1 (0.0-0.4); EOSINOPHILS % 1.3 % (0.0-6.0); HEMOGLOBIN 7.3 g/dL (12.0-16.0); LYMPHOCYTES # (AUTO) 1.3 (1.0-3.2); LYMPHOCYTES % 26.4 % (18.0-39.1); MEAN CORPUSCULAR HEMOGLOBIN 32.3 pg (28-32); MEAN CORPUSCULAR VOLUME 95.1 fL (81-99); MONOCYTES # (AUTO) 0.5 (0.2-0.8); MONOCYTES % 10.5 % (4.4-11.3); NEUTROPHILS # (AUTO) 2.9 (2.1-6.9); RED BLOOD COUNT 2.26 x10e6/uL (3.6-5.1); RED CELL DISTRIBUTION WIDTH 15.9 % (11.7-14.4)
[2020-12-23] MEDS: LACTATED RINGER'S 1,000 ML INJ SCH (06:15)
[2020-12-23 06:27] LABS: ALBUMIN 2.6 g/dL (3.5-5.0); ALBUMIN/GLOBULIN RATIO 0.7 (0.8-2.0); ANION GAP 12.5 mmol/L (8-16); CALCIUM 7.7 mg/dL (8.4-10.2); CREATININE, SERUM 0.68 mg/dL (0.57-1.11); POTASSIUM 3.5 mmol/L (3.5-5.1)
[2020-12-23 06:55] LABS: HEMATOCRIT 21.5 % (34.2-44.1)
[2020-12-23 07:20] LABS: PLATELET COUNT 48 x10e3/uL (140-360)
[2020-12-23] MEDS: NIFEDIPINE CR 30 MG TAB PO SCH (07:24)
[2020-12-23] MEDS: PIPERACILLIN/TAZOBACTAM 3.375 GM in SODIUM CHLORIDE 0.9% 50ML 50 ML IV SCH ×3 (07:24→22:10)
[2020-12-23] MEDS: METOPROLOL TARTRATE 50 MG TAB PO SCH ×3 (07:24→22:10)
[2020-12-23] MEDS: INSULIN LISPRO 100 UNIT/1 ML 3ML VIAL SQ SCH ×4 (07:30→19:51)
[2020-12-23] MEDS: IRON SUCROSE 100 MG in SODIUM CHLORIDE 0.9% 100 ML 100 ML IV SCH (09:42)
[2020-12-23 10:52] LABS: LYMPHOCYTES % (MANUAL) 29 % (19-48); MONOCYTES % (MANUAL) 9 % (3.4-9.0); NEUTROPHILS % (MANUAL) 62 % (40-74)
[2020-12-23 10:53] LABS: PLATELET ESTIMATE MODERATELY DECREASED
[2020-12-23 10:54] LABS: PLATELET MORPHOLOGY COMMENT NORMAL; RBC MORPHOLOGY COMMENT NORMAL
[2020-12-23 10:55] LABS: HYPOCHROMASIA MODERATE
[2020-12-23] MEDS: Morphine 4mg Syringe 4 MG/ML INJ IV PRN (20:43)
[2020-12-24] VITALS (8 sets, daily range): BP systolic 117–147; BP diastolic 70–83
[2020-12-24] MEDS: Morphine 4mg Syringe 4 MG/ML INJ IV PRN ×3 (00:59→14:30)
[2020-12-24] MEDS ORDERED: MAGNESIUM/ALUMINUM/SIMETHICONE 30 ML UDC PO ONE (01:30)
[2020-12-24] MEDS ORDERED: LIDOCAINE VISC 2% SOLN 15 ML UDC PO ONE (01:30)
[2020-12-24] MEDS ORDERED: DONNATAL/LIDOCAINE/MAALOX 30 ML SUSP PO ONE (01:30)
[2020-12-24] MEDS ORDERED: BELLADONNA ALK/PHENOBARBITAL 5 ML UDC PO ONE (01:30)
[2020-12-24 05:50] LABS: BASOPHILS % 0.8 % (0.0-1.0); HEMATOCRIT 26.3 % (34.2-44.1); HEMOGLOBIN 8.3 g/dL (12.0-16.0); LYMPHOCYTES # (AUTO) 1.3 (1.0-3.2); LYMPHOCYTES % 33.3 % (18.0-39.1); MEAN CORPUSCULAR HEMOGLOBIN 32.4 pg (28-32); MEAN CORPUSCULAR HGB CONC 31.6 g/dL (31-35); MEAN CORPUSCULAR VOLUME 102.7 fL (81-99); MONOCYTES # (AUTO) 0.3 (0.2-0.8); MONOCYTES % 8.7 % (4.4-11.3); NEUTROPHILS # (AUTO) 2.2 (2.1-6.9); NEUTROPHILS % 55.7 % (38.7-80.0); PLATELET COUNT 59 x10e3/uL (140-360); RED BLOOD COUNT 2.56 x10e6/uL (3.6-5.1); RED CELL DISTRIBUTION WIDTH 16.9 % (11.7-14.4)
[2020-12-24 06:10] LABS: ANION GAP 15.3 mmol/L (8-16); BLOOD UREA NITROGEN < 5 mg/dL (7-26); BUN/CREATININE RATIO 8 (6-25); CALCIUM 8.1 mg/dL (8.4-10.2); CARBON DIOXIDE 16 mmol/L (22-29); CHLORIDE 105 mmol/L (98-107); CREATININE, SERUM 0.66 mg/dL (0.57-1.11); EST GLOMERULAR FILTRATION RATE 110 ML/MIN (60-); GLUCOSE 84 mg/dL (74-118); POTASSIUM 3.3 mmol/L (3.5-5.1); SODIUM 133 mmol/L (136-145)
[2020-12-24] MEDS: METOPROLOL TARTRATE 50 MG TAB PO SCH ×3 (06:24→22:03)
[2020-12-24] MEDS: NIFEDIPINE CR 30 MG TAB PO SCH (06:24)
[2020-12-24] MEDS: PIPERACILLIN/TAZOBACTAM 3.375 GM in SODIUM CHLORIDE 0.9% 50ML 50 ML IV SCH ×3 (06:24→22:02)
[2020-12-24] MEDS: IRON SUCROSE 100 MG in SODIUM CHLORIDE 0.9% 100 ML 100 ML IV SCH (09:14)
[2020-12-24] MEDS: INSULIN LISPRO 100 UNIT/1 ML 3ML VIAL SQ SCH ×4 (09:28→21:00)
[2020-12-25] VITALS (9 sets, daily range): BP systolic 109–151; BP diastolic 72–110
[2020-12-25] MEDS: PIPERACILLIN/TAZOBACTAM 3.375 GM in SODIUM CHLORIDE 0.9% 50ML 50 ML IV SCH ×3 (05:44→21:04)
[2020-12-25] MEDS: Morphine 4mg Syringe 4 MG/ML INJ IV PRN ×3 (06:00→20:30)
[2020-12-25] MEDS: NIFEDIPINE CR 30 MG TAB PO SCH (07:03)
[2020-12-25] MEDS: METOPROLOL TARTRATE 50 MG TAB PO SCH ×3 (07:03→21:04)
[2020-12-25] MEDS: INSULIN LISPRO 100 UNIT/1 ML 3ML VIAL SQ SCH ×4 (07:30→21:00)
[2020-12-25] MEDS ORDERED: ACETAMINOPHEN 325 MG TAB PO PRN (09:30)
[2020-12-25] MEDS ORDERED: POTASSIUM CHLORIDE 10MEQ EA PO ONE (09:30)
[2020-12-25] MEDS ORDERED: CHLORDIAZEPOXIDE HCL 10 MG CAP PO PRN (09:30)
[2020-12-25] MEDS ORDERED: FLUCONAZOLE 100 MG TAB PO ONE (10:00)
[2020-12-25] MEDS: ONDANSETRON HCL INJ 2MG/ML 2ML 2 MG/ML VIAL IV PRN (11:27)
[2020-12-25] MEDS ORDERED: ONDANSETRON HCL 4 MG ORAL DISINTEGRATING TAB PO PRN (16:00)
[2020-12-26] VITALS (9 sets, daily range): BP systolic 100–135; BP diastolic 72–93
[2020-12-26] MEDS ORDERED: LOPERAMIDE HCL 2 MG CAP PO ONE (01:15)
[2020-12-26] MEDS ORDERED: DONNATAL/LIDOCAINE/MAALOX 30 ML SUSP PO ONE (01:15)
[2020-12-26] MEDS: Morphine 4mg Syringe 4 MG/ML INJ IV PRN ×4 (01:41→19:40)
[2020-12-26 06:00] LABS: BASOPHILS % 0.6 % (0.0-1.0); EOSINOPHILS # (AUTO) 0.1 (0.0-0.4); EOSINOPHILS % 1.1 % (0.0-6.0); HEMATOCRIT 24.3 % (34.2-44.1); HEMOGLOBIN 7.6 g/dL (12.0-16.0); LYMPHOCYTES # (AUTO) 1.7 (1.0-3.2); LYMPHOCYTES % 35.7 % (18.0-39.1); MEAN CORPUSCULAR HEMOGLOBIN 32.6 pg (28-32); MEAN CORPUSCULAR HGB CONC 31.3 g/dL (31-35); MEAN CORPUSCULAR VOLUME 104.3 fL (81-99); MONOCYTES # (AUTO) 0.8 (0.2-0.8); MONOCYTES % 16.8 % (4.4-11.3); NEUTROPHILS # (AUTO) 2.1 (2.1-6.9); NEUTROPHILS % 45.4 % (38.7-80.0); PLATELET COUNT 99 x10e3/uL (140-360); RED BLOOD COUNT 2.33 x10e6/uL (3.6-5.1); RED CELL DISTRIBUTION WIDTH 17.5 % (11.7-14.4)
[2020-12-26] MEDS: NIFEDIPINE CR 30 MG TAB PO SCH (06:03)
[2020-12-26] MEDS: PIPERACILLIN/TAZOBACTAM 3.375 GM in SODIUM CHLORIDE 0.9% 50ML 50 ML IV SCH ×3 (06:03→22:10)
[2020-12-26] MEDS: METOPROLOL TARTRATE 50 MG TAB PO SCH ×3 (06:03→22:30)
[2020-12-26 06:36] LABS: ALBUMIN 2.8 g/dL (3.5-5.0); ALBUMIN/GLOBULIN RATIO 0.6 (0.8-2.0); ANION GAP 12.6 mmol/L (8-16); CALCIUM 7.5 mg/dL (8.4-10.2); CREATININE, SERUM 0.73 mg/dL (0.57-1.11); POTASSIUM 3.6 mmol/L (3.5-5.1)
[2020-12-26] MEDS: INSULIN LISPRO 100 UNIT/1 ML 3ML VIAL SQ SCH ×4 (07:30→20:56)
[2020-12-26] MEDS: FLUCONAZOLE 100 MG TAB PO SCH (09:00)
[2020-12-26] MEDS ORDERED: BISACODYL 5 MG TAB EC PO SCH ×3 (10:10→15:00)
[2020-12-26] MEDS ORDERED: BISACODYL 5 MG TAB EC PO ONE (15:00)
[2020-12-26] MEDS ORDERED: CITRATE OF MAGNESIA 300ML BOTTLE PO ONE ×2 (21:00→23:00)
[2020-12-27] VITALS (7 sets, daily range): BP systolic 104–137; BP diastolic 65–88
[2020-12-27] MEDS: Morphine 4mg Syringe 4 MG/ML INJ IV PRN ×4 (00:16→13:18)
[2020-12-27] MEDS: METOPROLOL TARTRATE 50 MG TAB PO SCH ×3 (03:28→21:05)
[2020-12-27] MEDS: NIFEDIPINE CR 30 MG TAB PO SCH (03:28)
[2020-12-27] MEDS: PIPERACILLIN/TAZOBACTAM 3.375 GM in SODIUM CHLORIDE 0.9% 50ML 50 ML IV SCH ×3 (05:17→21:05)
[2020-12-27 05:57] LABS: BASOPHILS % 0.5 % (0.0-1.0); EOSINOPHILS # (AUTO) 0.1 (0.0-0.4); HEMATOCRIT 23.2 % (34.2-44.1); HEMOGLOBIN 7.8 g/dL (12.0-16.0); LYMPHOCYTES # (AUTO) 1.5 (1.0-3.2); LYMPHOCYTES % 25.5 % (18.0-39.1); MEAN CORPUSCULAR HEMOGLOBIN 32.2 pg (28-32); MEAN CORPUSCULAR HGB CONC 33.6 g/dL (31-35); MEAN CORPUSCULAR VOLUME 95.9 fL (81-99); MONOCYTES # (AUTO) 1.1 (0.2-0.8); MONOCYTES % 18.5 % (4.4-11.3); NEUTROPHILS # (AUTO) 3.2 (2.1-6.9); NEUTROPHILS % 53.5 % (38.7-80.0); PLATELET COUNT 133 x10e3/uL (140-360); RED BLOOD COUNT 2.42 x10e6/uL (3.6-5.1); RED CELL DISTRIBUTION WIDTH 16.4 % (11.7-14.4)
[2020-12-27 06:09] LABS: INR 1.06; PROTHROMBIN TIME 14.7 seconds (11.9-14.5)
[2020-12-27] MEDS: INSULIN LISPRO 100 UNIT/1 ML 3ML VIAL SQ SCH ×4 (07:30→21:00)
[2020-12-27] MEDS: FLUCONAZOLE 100 MG TAB PO SCH (09:00)
[2020-12-27] MEDS ORDERED: METOCLOPRAMIDE HCL 10 MG/2ML VIAL ONE (13:26)
[2020-12-27] MEDS ORDERED: LIDOCAINE HCL 2% LOCAL INJ 5 ML SDV VIAL INJ ONE (13:26)
[2020-12-27] MEDS ORDERED: POVIDONE IODINE 0.05% 0.05 % ML PO ONE (13:26)
[2020-12-27] MEDS ORDERED: PROPOFOL IV EMULSION 10 MG/ML 20 ML VIAL ONE (13:26)
[2020-12-27] MEDS ORDERED: MIDAZOLAM HCL 2 MG/2 ML VIAL ONE (13:56)
[2020-12-27] MEDS ORDERED: FENTANYL CITRATE/PF 100MCG/2 ML INJ ONE (13:56)
[2020-12-27] MEDS: TEMAZEPAM 15 MG CAP PO PRN (21:06)
[2020-12-28 01:01] VITALS: BP 140/78
[2020-12-28] MEDS: PIPERACILLIN/TAZOBACTAM 3.375 GM in SODIUM CHLORIDE 0.9% 50ML 50 ML IV SCH (05:23)
[2020-12-28] MEDS: NIFEDIPINE CR 30 MG TAB PO SCH (05:24)
[2020-12-28] MEDS: METOPROLOL TARTRATE 50 MG TAB PO SCH (05:24)
[2020-12-28 05:25] VITALS: BP 148/86
[2020-12-28] MEDS: INSULIN LISPRO 100 UNIT/1 ML 3ML VIAL SQ SCH (07:30)
[2020-12-28 08:01] VITALS: BP_SYST 148; BP_SYST 165; BP_DIAS 86; BP_DIAS 99
[2020-12-28] MEDS: FLUCONAZOLE 100 MG TAB PO SCH (09:33)
[2020-12-28] MEDS ORDERED: OMEPRAZOLE40 MG PO (09:38)
[2020-12-28] MEDS ORDERED: SENOKOT-S TABL1 EACH PO (09:39)
[2020-12-28] MEDS ORDERED: ZENPEP DR 40,01 EACH PO (09:41)
[2020-12-28] MEDS ORDERED: ONDANSETRON ODT4 MG SL (09:42)
[2020-12-28] MEDS ORDERED: HEMOCYTE PLUS1 EACH PO (09:43)
[2020-12-28] MEDS ORDERED: NIFEDIPINE ER30 M1 PO (09:44)
[2020-12-28 11:50] VITALS: BP 155/87
== END 2020-12-28 12:00 | disposition home or self-care (01) | DRG 438 ==
LOC: ER 14:37 → ERHOLD 18:48 → MED/SURG2 21:42 → OBSVTOIN 23:31
PROVIDERS: ADMIT Internal Medicine; ATTEND Internal Medicine
PROC: 0DBK8ZX Excision of Ascending Colon, Via Natural or Artificial Opening Endoscopic, Diagnostic (ICD-10-PCS; 2020-12-27)
PROC: 0DBN8ZX Excision of Sigmoid Colon, Via Natural or Artificial Opening Endoscopic, Diagnostic (ICD-10-PCS; 2020-12-27)
PROC: 0DB98ZX Excision of Duodenum, Via Natural or Artificial Opening Endoscopic, Diagnostic (ICD-10-PCS; principal; 2020-12-27 16:00)
PROC: 0DB78ZX Excision of Stomach, Pylorus, Via Natural or Artificial Opening Endoscopic, Diagnostic (ICD-10-PCS; 2020-12-27 16:00)
DX: K85.20 Alcohol induced acute pancreatitis without necrosis or infection (principal); I85.11 Secondary esophageal varices with bleeding; E87.1 Hypo-osmolality and hyponatremia; K76.6 Portal hypertension; K70.30 Alcoholic cirrhosis of liver without ascites; F10.20 Alcohol dependence, uncomplicated; E11.9 Type 2 diabetes mellitus without complications; I10 Essential (primary) hypertension; D64.9 Anemia, unspecified; F17.200 Nicotine dependence, unspecified, uncomplicated; D69.6 Thrombocytopenia, unspecified; D64.89 Other specified anemias; K20.90 Esophagitis, unspecified without bleeding; K44.9 Diaphragmatic hernia without obstruction or gangrene; K29.70 Gastritis, unspecified, without bleeding; K31.89 Other diseases of stomach and duodenum; K57.30 Diverticulosis of large intestine without perforation or abscess without bleeding; K63.5 Polyp of colon; K64.8 Other hemorrhoids; K82.9 Disease of gallbladder, unspecified; D50.9 Iron deficiency anemia, unspecified; Z20.822 Contact with and (suspected) exposure to COVID-19; Z79.84 Long term (current) use of oral hypoglycemic drugs
CPT/HCPCS: 36415; 43239; 45378; 74176; 74181; 80048; 80053; 80061; 80320; 81001; 82607; 82746; 82948; 83036; 83540; 83690; 83735; 84100; 84443; 84466; 85025; 85610; 87521; 88305; 88312; 94799; 99284; J0360; J1756; J2001; J2250; J2270; J2405; J2543; J2765; J3010; J3411; J3475; J7030; J7121; U0002

== ENCOUNTER 2021-08-29 00:04 | Inpatient (IN) | payer OTHER ==
[~2021-08-29] VITALS: Ht 165.1 cm; Wt 46.7 kg
[~2021-08-29 00:04] MED LIST changes: +HEMOCYTE PLUS1 EACH PO; +NIFEDIPINE ER30 M1 PO; +OMEPRAZOLE40 MG PO; +ONDANSETRON ODT4 MG SL; +SENOKOT-S TABL1 EACH PO
[2021-08-29] MEDS ORDERED: ONDANSETRON HCL INJ 2MG/ML 2ML 2 MG/ML VIAL IV STA (00:36)
[2021-08-29] MEDS ORDERED: Morphine 4mg INJECTION 4 MG/ML INJ IV ONE (00:45)
[2021-08-29] MEDS ORDERED: SODIUM CHLORIDE 0.9% 1000ML 1,000 ML IV ONE (00:45)
[2021-08-29 01:01] LABS: BASOPHILS % 0.3 % (0.0-1.0); EOSINOPHILS % 0.6 % (0.0-6.0); HEMOGLOBIN 7.9 g/dL (12.0-16.0); LYMPHOCYTES % 27.4 % (18.0-39.1); MEAN CORPUSCULAR HEMOGLOBIN 33.2 pg (28-32); MEAN CORPUSCULAR HGB CONC 35.6 g/dL (31-35); MEAN CORPUSCULAR VOLUME 93.3 fL (81-99); MONOCYTES # (AUTO) 0.3 (0.2-0.8); MONOCYTES % 9.1 % (4.4-11.3); NEUTROPHILS # (AUTO) 2.2 (2.1-6.9); RED BLOOD COUNT 2.38 x10e6/uL (3.6-5.1); RED CELL DISTRIBUTION WIDTH 14.7 % (11.7-14.4)
[2021-08-29 01:05] LABS: HEMATOCRIT 22.2 % (34.2-44.1)
[2021-08-29 01:06] LABS: PLATELET COUNT 46 x10e3/uL (140-360)
[2021-08-29 01:16] LABS: ALBUMIN 3.6 g/dL (3.5-5.0); ALBUMIN/GLOBULIN RATIO 0.7 (0.8-2.0); ANION GAP 18.9 mmol/L (8-16); CALCIUM 8.3 mg/dL (8.4-10.2); CREATININE, SERUM 1.25 mg/dL (0.57-1.11); POTASSIUM 3.9 mmol/L (3.5-5.1)
[2021-08-29 01:30] LABS: CLARITY,URINE SL CLOUDY (CLEAR); COLOR,URINE AMBER (YELLOW); KETONES,URINE 1+ (NEGATIVE); LEUKOCYTE ESTERASE ,URINE NEGATIVE (NEGATIVE); NITRITE,URINE NEGATIVE (NEGATIVE); PROTEIN,URINE DIPSTICK >=300 (NEGATIVE); URINE UROBILINOGEN 1 mg/dL (0.2 - 1)
[2021-08-29 01:35] LABS: AMORPHOUS SEDIMENT,URINE FEW (FEW); BACTERIA,URINE FEW /HPF; EPITHELIAL CELLS,URINE MODERATE /LPF; RBC,URINE 0-5 /HPF (0-5); WBC,URINE (MAN) 0-5 /HPF (0-5)
[2021-08-29] MEDS ORDERED: IOPAMIDOL 370 MG/ML 100 ML INFUS..BTL INJ ONE (01:50)
[2021-08-29] MEDS ORDERED: ONDANSETRON HCL INJ 2MG/ML 2ML 2 MG/ML VIAL IV PRN (02:45)
[2021-08-29] MEDS: SODIUM CHLORIDE 0.9% 1000ML 1,000 ML IV SCH ×2 (03:15→14:38)
[2021-08-29] MEDS: Morphine 4mg INJECTION 4 MG/ML INJ IV PRN ×2 (05:24→12:18)
[2021-08-29 11:27] LABS: EOSINOPHILS # (AUTO) 0.1 (0.0-0.4); EOSINOPHILS % 1.9 % (0.0-6.0); HEMATOCRIT 23.2 % (34.2-44.1); LYMPHOCYTES % 31.6 % (18.0-39.1); MEAN CORPUSCULAR HEMOGLOBIN 33.6 pg (28-32); MEAN CORPUSCULAR HGB CONC 34.5 g/dL (31-35); MEAN CORPUSCULAR VOLUME 97.5 fL (81-99); MONOCYTES # (AUTO) 0.3 (0.2-0.8); MONOCYTES % 8.7 % (4.4-11.3); NEUTROPHILS # (AUTO) 1.8 (2.1-6.9); NEUTROPHILS % 56.5 % (38.7-80.0); RED BLOOD COUNT 2.38 x10e6/uL (3.6-5.1); RED CELL DISTRIBUTION WIDTH 15.1 % (11.7-14.4)
[2021-08-29 11:55] LABS: ALBUMIN 3.2 g/dL (3.5-5.0); ALBUMIN/GLOBULIN RATIO 0.7 (0.8-2.0); ANION GAP 16.1 mmol/L (8-16); CALCIUM 7.4 mg/dL (8.4-10.2); CREATININE, SERUM 0.85 mg/dL (0.57-1.11); POTASSIUM 3.1 mmol/L (3.5-5.1)
[2021-08-29 11:57] LABS: PLATELET COUNT 42 x10e3/uL (140-360)
[2021-08-29] MEDS: HYDROXYZINE HCL 25 MG TAB PO PRN (14:38)
[2021-08-29 14:47] LABS: FERRITIN 2591.07 ng/mL (4.63-204.00)
[2021-08-29 16:11] VITALS: BP 126/76
[2021-08-29 16:26] VITALS: BP 126/76
[2021-08-29 20:00] VITALS: BP 115/56
[2021-08-29 21:00] VITALS: BP 115/56
[2021-08-30] VITALS (9 sets, daily range): BP systolic 102–145; BP diastolic 64–90
[2021-08-30] MEDS: HYDROXYZINE HCL 25 MG TAB PO PRN ×3 (00:25→20:22)
[2021-08-30] MEDS: SODIUM CHLORIDE 0.9% 1000ML 1,000 ML IV SCH ×3 (00:27→20:23)
[2021-08-30 07:06] LABS: BASOPHILS % 0.6 % (0.0-1.0); EOSINOPHILS % 1.3 % (0.0-6.0); HEMOGLOBIN 7.4 g/dL (12.0-16.0); LYMPHOCYTES # (AUTO) 0.7 (1.0-3.2); LYMPHOCYTES % 23.3 % (18.0-39.1); MEAN CORPUSCULAR HEMOGLOBIN 35.1 pg (28-32); MEAN CORPUSCULAR HGB CONC 36.5 g/dL (31-35); MEAN CORPUSCULAR VOLUME 96.2 fL (81-99); MONOCYTES # (AUTO) 0.3 (0.2-0.8); MONOCYTES % 8.5 % (4.4-11.3); NEUTROPHILS # (AUTO) 2.1 (2.1-6.9); NEUTROPHILS % 65.7 % (38.7-80.0); RED BLOOD COUNT 2.11 x10e6/uL (3.6-5.1); RED CELL DISTRIBUTION WIDTH 14.8 % (11.7-14.4)
[2021-08-30 07:24] LABS: HEMATOCRIT 20.3 % (34.2-44.1)
[2021-08-30 07:28] LABS: PLATELET COUNT 41 x10e3/uL (140-360)
[2021-08-30 09:08] LABS: ALANINE AMINOTRANSFERASE 52 IU/L (0-55); ALBUMIN 2.7 g/dL (3.5-5.0); ALBUMIN/GLOBULIN RATIO 0.7 (0.8-2.0); ALKALINE PHOSPHATASE 70 IU/L (40-150); AMYLASE 107 U/L (25-125); ANION GAP 13.1 mmol/L (8-16); BLOOD UREA NITROGEN < 5 mg/dL (7-26); CALCIUM 7.6 mg/dL (8.4-10.2); CARBON DIOXIDE 19 mmol/L (22-29); CHLORIDE 102 mmol/L (98-107); CREATININE, SERUM 0.65 mg/dL (0.57-1.11); GLUCOSE 122 mg/dL (74-118); LIPASE 127 U/L (8-78); POTASSIUM 3.1 mmol/L (3.5-5.1); SODIUM 131 mmol/L (136-145)
[2021-08-30 09:24] LABS: BUN/CREATININE RATIO 8 (6-25)
[2021-08-30 09:31] LABS: MAGNESIUM < 0.6 MG/DL (1.3-2.1)
[2021-08-30 09:33] LABS: ANISOCYTOSIS SLIGHT; LYMPHOCYTES % (MANUAL) 12 % (19-48); MONOCYTES % (MANUAL) 6 % (3.4-9.0); NEUTROPHILS % (MANUAL) 80 % (40-74); PLATELET ESTIMATE MARKEDLY DECREASED; PLATELET MORPHOLOGY COMMENT NORMAL; RBC MORPHOLOGY COMMENT NORMAL
[2021-08-30] MEDS ORDERED: MAGNESIUM SULFATE 2GM/50ML 50 ML IV ONE (10:30)
[2021-08-30] MEDS: POTASSIUM CHLORIDE 10MEQ/100ML 100 ML IV SCH ×3 (10:39→14:07)
[2021-08-30] MEDS ORDERED: SODIUM CHLORIDE 0.9% 250ML 250 ML ONE (12:07)
[2021-08-30] MEDS: HYDROMORPHONE 1MG/1ML INJ IV PRN ×2 (15:27→19:44)
[2021-08-30 18:02] LABS: MAGNESIUM 1.2 MG/DL (1.3-2.1); POTASSIUM 3.7 mmol/L (3.5-5.1)
[2021-08-30 19:10] LABS: OSMOLALITY,SERUM OSMOMETER 280 mOsmol/kg (280-301)
[2021-08-31] VITALS (8 sets, daily range): BP systolic 109–137; BP diastolic 77–85
[2021-08-31] MEDS ORDERED: TRAMADOL HCL 50 MG TAB PO PRN (02:30)
[2021-08-31] MEDS: SODIUM CHLORIDE 0.9% 1000ML 1,000 ML IV SCH ×2 (05:39→15:49)
[2021-08-31 10:22] LABS: BASOPHILS % 0.5 % (0.0-1.0); HEMATOCRIT 24.7 % (34.2-44.1); HEMOGLOBIN 8.4 g/dL (12.0-16.0); LYMPHOCYTES # (AUTO) 1.1 (1.0-3.2); LYMPHOCYTES % 28.7 % (18.0-39.1); MONOCYTES # (AUTO) 0.3 (0.2-0.8); MONOCYTES % 7.2 % (4.4-11.3); NEUTROPHILS # (AUTO) 2.4 (2.1-6.9); NEUTROPHILS % 62.3 % (38.7-80.0); RED BLOOD COUNT 2.47 x10e6/uL (3.6-5.1); RED CELL DISTRIBUTION WIDTH 15.9 % (11.7-14.4)
[2021-08-31 10:30] LABS: PLATELET COUNT 39 x10e3/uL (140-360)
[2021-08-31 10:53] LABS: ALANINE AMINOTRANSFERASE 59 IU/L (0-55); ALBUMIN 2.9 g/dL (3.5-5.0); ALBUMIN/GLOBULIN RATIO 0.7 (0.8-2.0); ALKALINE PHOSPHATASE 89 IU/L (40-150); AMYLASE 99 U/L (25-125); ANION GAP 16.5 mmol/L (8-16); BLOOD UREA NITROGEN < 5 mg/dL (7-26); CALCIUM 9.3 mg/dL (8.4-10.2); CARBON DIOXIDE 15 mmol/L (22-29); CHLORIDE 106 mmol/L (98-107); CREATININE, SERUM 0.66 mg/dL (0.57-1.11); GLUCOSE 199 mg/dL (74-118); LIPASE 62 U/L (8-78); POTASSIUM 3.5 mmol/L (3.5-5.1); SODIUM 134 mmol/L (136-145)
[2021-08-31 10:58] LABS: BUN/CREATININE RATIO 8 (6-25)
[2021-08-31 11:02] LABS: MAGNESIUM 0.8 MG/DL (1.3-2.1)
[2021-08-31] MEDS: HYDROXYZINE HCL 25 MG TAB PO PRN (11:15)
[2021-08-31] MEDS ORDERED: MAGNESIUM SULFATE 2GM/50ML 100 ML IV ONE (11:45)
[2021-08-31] MEDS: HYDROCODONE/APAP 5MG-325MG TAB PO PRN ×2 (15:49→22:02)
[2021-09-01] VITALS (7 sets, daily range): BP systolic 120–166; BP diastolic 49–86
[2021-09-01] MEDS: SODIUM CHLORIDE 0.9% 1000ML 1,000 ML IV SCH ×3 (02:00→23:30)
[2021-09-01] MEDS: HYDROCODONE/APAP 5MG-325MG TAB PO PRN ×2 (08:50→15:01)
[2021-09-01 09:54] LABS: ALANINE AMINOTRANSFERASE 49 IU/L (0-55); ALBUMIN 2.5 g/dL (3.5-5.0); ALBUMIN/GLOBULIN RATIO 0.7 (0.8-2.0); ALKALINE PHOSPHATASE 91 IU/L (40-150); ANION GAP 12.6 mmol/L (8-16); BLOOD UREA NITROGEN < 5 mg/dL (7-26); CARBON DIOXIDE 18 mmol/L (22-29); CHLORIDE 107 mmol/L (98-107); CREATININE, SERUM 0.62 mg/dL (0.57-1.11); GLUCOSE 187 mg/dL (74-118); POTASSIUM 3.6 mmol/L (3.5-5.1); SODIUM 134 mmol/L (136-145)
[2021-09-01 10:01] LABS: BUN/CREATININE RATIO 8 (6-25)
[2021-09-01 10:03] LABS: CALCIUM 6.5 mg/dL (8.4-10.2)
[2021-09-02 00:36] VITALS: BP 138/85
[2021-09-02 05:58] VITALS: BP 138/76
[2021-09-02 07:19] LABS: ALANINE AMINOTRANSFERASE 40 IU/L (0-55); ALBUMIN 2.5 g/dL (3.5-5.0); ALBUMIN/GLOBULIN RATIO 0.7 (0.8-2.0); ALKALINE PHOSPHATASE 111 IU/L (40-150); ANION GAP 11.4 mmol/L (8-16); BLOOD UREA NITROGEN < 5 mg/dL (7-26); CARBON DIOXIDE 21 mmol/L (22-29); CHLORIDE 108 mmol/L (98-107); CREATININE, SERUM 0.57 mg/dL (0.57-1.11); GLUCOSE 115 mg/dL (74-118); POTASSIUM 3.4 mmol/L (3.5-5.1); SODIUM 137 mmol/L (136-145)
[2021-09-02 07:22] LABS: BUN/CREATININE RATIO 9 (6-25)
[2021-09-02 07:25] LABS: CALCIUM 6.8 mg/dL (8.4-10.2)
[2021-09-02 08:00] VITALS: BP 157/85
[2021-09-02] MEDS ORDERED: CALCIUM GLUC 1 G/50 ML NACL 50 ML IV ONE (08:30)
[2021-09-02] MEDS ORDERED: POTASSIUM CHLORIDE 20 MEQ TAB CR PO ONE (08:30)
[2021-09-02] MEDS ORDERED: MAGNESIUM OXIDE 400 MG TAB PO ONE (08:30)
[2021-09-02 09:45] VITALS: BP 157/85
[2021-09-02] MEDS: SODIUM CHLORIDE 0.9% 1000ML 1,000 ML IV SCH (09:45)
[2021-09-02] MEDS: HYDROCODONE/APAP 5MG-325MG TAB PO PRN ×2 (10:00→16:13)
[2021-09-02 12:15] VITALS: BP 165/86
[2021-09-02] MEDS ORDERED: CALCIUM CARBON500 MG PO (13:26)
[2021-09-02] MEDS ORDERED: MAGNESIUM OXID400 MG PO (13:26)
[2021-09-02] MEDS ORDERED: MAGNESIUM SULFATE 2GM/50ML 50 ML IV ONE (14:00)
[2021-09-02] MEDS ORDERED: ONDANSETRON HCL 4 MG ORAL DISINTEGRATING TAB PO PRN (15:15)
[2021-09-02 16:00] VITALS: BP 164/90
[2021-09-02] MEDS: CALCIUM GLUC 1 G/50 ML NACL 50 ML IV SCH ×2 (16:31→17:38)
[2021-09-03] MEDS ORDERED: MAGNESIUM OXIDE 400 MG TAB PO SCH (09:00)
[2021-09-03] MEDS ORDERED: OYST-CAL-D 500MG TABLET PO SCH (09:00)
== END 2021-09-02 18:50 | disposition home or self-care (01) | DRG 439 ==
LOC: ER 00:22 → ERHOLD 02:40 → MED/SURG3 15:45 → OBSVTOIN 08-30 08:45
PROVIDERS: ADMIT Internal Medicine; ATTEND Internal Medicine
DX: K85.20 Alcohol induced acute pancreatitis without necrosis or infection (principal); D61.818 Other pancytopenia; E87.1 Hypo-osmolality and hyponatremia; K86.0 Alcohol-induced chronic pancreatitis; K57.90 Diverticulosis of intestine, part unspecified, without perforation or abscess without bleeding; B18.2 Chronic viral hepatitis C; J44.9 Chronic obstructive pulmonary disease, unspecified; I10 Essential (primary) hypertension; K70.0 Alcoholic fatty liver; Z20.822 Contact with and (suspected) exposure to COVID-19
CPT/HCPCS: 0223U; 36415; 74177; 76705; 80053; 80320; 81001; 81161; 81220; 82150; 82607; 82728; 82746; 83036; 83540; 83690; 83735; 83930; 83935; 84132; 84300; 84466; 85025; 85045; 96360; 96361; 99284; G0378; J1170; J2270; J2405; J3410; J3475; J3480; J7030; J7050; Q9967